=== PATIENT | female | born 1945 ===

== ENCOUNTER 2020-08-01 10:30 | Inpatient (IN) | payer OTHER ==
[~2020-08-01] VITALS: Ht 170.2 cm; Wt 81.2 kg
[2020-08-01] MEDS ORDERED: LEVOTHYROXINE25 MCG PO (13:10)
[2020-08-01] MEDS ORDERED: CRESTOR5 MG PO (13:10)
[2020-08-01] MEDS ORDERED: ESCITALOPRAM OX10 MG PO (13:11)
[2020-08-01] MEDS ORDERED: PREVACID15 MG PO (13:11)
[2020-08-06] MEDS ORDERED: VITAMIN D3125 MC1 (11:28)
[2020-08-06] MEDS ORDERED: DICLOFENAC SOD100 GM (11:28)
[2020-08-06] MEDS ORDERED: NEURONTIN800 MG PO (13:09)
[2020-08-06] MEDS ORDERED: MEDROLPACK PO (13:09)
[2020-08-06] MEDS ORDERED: COLACE100 MG PO (13:09)
[2020-08-06] MEDS ORDERED: AMOX-CLAV 875-1 EACH PO (13:10)
[2020-08-06] MEDS ORDERED: PERCOCET 5-3251 EACH PO (13:11)
[2020-08-06] MEDS ORDERED: DIAZEPAM5 MG PO (13:11)
== END 2020-08-08 14:49 | DRG 455 ==
LOC: ADM 10:30 → O/R 08-06 06:53 → CIR.AMB 08-06 10:30 → SURH 08-06 10:30 → EDSTATUS 08-06 10:30 → SURH 08-06 17:08
PROVIDERS: ADMIT Orthopaedic Surgery Orthopaedic Surgery of the Spine; ATTEND Orthopaedic Surgery Orthopaedic Surgery of the Spine
PROC: 0SG10J1 Fusion of 2 or more Lumbar Vertebral Joints with Synthetic Substitute, Posterior Approach, Posterior Column, Open Approach (ICD-10-PCS; 2020-08-06)
PROC: 07DR3ZZ Extraction of Iliac Bone Marrow, Percutaneous Approach (ICD-10-PCS; 2020-08-06)
PROC: XRGC0F3 Fusion of 2 or more Lumbar Vertebral Joints using Radiolucent Porous Interbody Fusion Device, Open Approach, New Technology Group 3 (ICD-10-PCS; principal; 2020-08-06 22:00)
DX: M41.86 Other forms of scoliosis, lumbar region (principal); M48.062 Spinal stenosis, lumbar region with neurogenic claudication

== ENCOUNTER 2024-07-28 13:32 | Inpatient (IN) | payer OTHER ==
[~2024-07-28] VITALS: Ht 213.4 cm; Wt 68.5 kg
[~2024-07-28 13:32] MED LIST: AMOX-CLAV 875-1 EACH PO; COLACE100 MG PO; CRESTOR5 MG PO; DIAZEPAM5 MG PO; DICLOFENAC SOD100 GM; ESCITALOPRAM OX10 MG PO; LEVOTHYROXINE25 MCG PO; MEDROLPACK PO; NEURONTIN800 MG PO; PERCOCET 5-3251 EACH PO; PREVACID15 MG PO; VITAMIN D3125 MC1
[2024-07-28 14:09] LABS: COVID-19 AG NEGATIVE (NEGATIVE)
[2024-08-11] MEDS ORDERED: METHYLPREDNISOLONE ACETATE 80 MG/ML VIAL ONE (07:17)
[2024-08-11] MEDS ORDERED: VANCOMYCIN HCL 1,000 MG VIAL ONE ×2 (07:17→14:10)
[2024-08-11] MEDS ORDERED: METHYLPREDNISOLONE SOD SUCC 125 MG VIAL ONE (07:17)
[2024-08-11] MEDS ORDERED: ISOPROPYL ALCOHOL 30 ML OUNCE TOP ONE ×2 (07:18→08:30)
[2024-08-11] MEDS ORDERED: CEFAZOLIN SODIUM 1,000 MG VIAL ONE (07:18)
[2024-08-11] MEDS ORDERED: HEMOSTATIC MATRIX WITH THROMBIN KIT TOP ONE ×2 (07:18→08:45)
[2024-08-11] MEDS ORDERED: PERCOCET 5-3251 EACH PO (07:34)
[2024-08-11] MEDS ORDERED: MEDROLPACK PO (07:35)
[2024-08-11] MEDS ORDERED: ZOFRAN8 MG PO (07:35)
[2024-08-11] MEDS ORDERED: COLACE100 MG PO (07:35)
[2024-08-11] MEDS ORDERED: PROMETHAZINE HCL 50 MG/ML AMPUL IM PRN (07:45)
[2024-08-11] MEDS ORDERED: ENALAPRILAT DIHYDRATE 1.25 MG/ML VIAL IV PRN (07:45)
[2024-08-11] MEDS ORDERED: 0.9 % SODIUM CHLORIDE 1,000 ML IV SCH (07:45)
[2024-08-11] MEDS ORDERED: VANCOMYCIN HCL 1,000 MG VIAL SPEPROC ONE (08:30)
[2024-08-11] MEDS ORDERED: METHYLPREDNISOLONE SOD SUCC 125 MG VIAL IV ONE (08:30)
[2024-08-11] MEDS ORDERED: VANCOMYCIN HCL 1,000 MG VIAL IV ONE (08:30)
[2024-08-11] MEDS ORDERED: VANCOMYCIN HCL 1,000 MG VIAL IR ONE (08:30)
[2024-08-11] MEDS ORDERED: CEFAZOLIN SODIUM 1,000 MG VIAL IV ONE (08:30)
[2024-08-11] MEDS ORDERED: METHYLPREDNISOLONE ACETATE 80 MG/ML VIAL IM ONE (08:30)
[2024-08-11] MEDS ORDERED: TAMSULOSIN HCL 0.4 MG CAP PO SCH (09:00)
[2024-08-11] MEDS ORDERED: METHYLPREDNISOLONE SOD SUCC 125 MG VIAL IV SCH (09:00)
[2024-08-11] MEDS ORDERED: FAMOtidine 20 MG TABLET PO SCH (09:00)
[2024-08-11] MEDS ORDERED: MORPHINE SULFATE 4 MG/ML CARTRIDGE IV SCH (09:00)
[2024-08-11] MEDS ORDERED: DOCUSATE SODIUM 100MG CAP PO SCH (09:00)
[2024-08-11] MEDS ORDERED: VANCOMYCIN HCL 1,000 MG VIAL IV SCH (09:00)
[2024-08-11] MEDS ORDERED: CEFAZOLIN SODIUM 1,000 MG in 0.9 % SODIUM CHLORIDE 50 ML IV SCH (09:00)
[2024-08-11] MEDS ORDERED: MORPHINE SULFATE 4 MG/ML VIAL IV ONE ×2 (10:50→11:20)
[2024-08-11 18:21] VITALS: BP 149/86; O2SAT 95
[2024-08-11] MEDS ORDERED: ACETAMINOPHEN 500 MG GEL..CAP PO SCH (20:00)
[2024-08-12] MEDS ORDERED: SODIUM CHLORIDE 0.45 % 1,000 ML IV SCH
[2024-08-12 00:34] VITALS: BP 138/82; O2SAT 95
[2024-08-12] MEDS ORDERED: LEVOTHYROXINE SODIUM 25 MCG TABLET PO SCH (06:00)
[2024-08-12] MEDS ORDERED: OxyCODONE HCL 5 MG TABLET (ROXICODONE) PO PRN (06:01)
[2024-08-12] MEDS ORDERED: VANCOMYCIN HCL 1,000 MG VIAL ONE (06:37)
== END 2024-08-12 13:17 | disposition home or self-care (01) | DRG 473 ==
LOC: O/R 08-11 05:16 → SURH 08-11 05:16
PROVIDERS: ADMIT Orthopaedic Surgery Orthopaedic Surgery of the Spine; ATTEND Orthopaedic Surgery Orthopaedic Surgery of the Spine
PROC: 0RT30ZZ Resection of Cervical Vertebral Disc, Open Approach (ICD-10-PCS; 2024-08-11)
PROC: 07DS0ZZ Extraction of Vertebral Bone Marrow, Open Approach (ICD-10-PCS; 2024-08-11)
PROC: 4A1104G Monitoring of Peripheral Nervous Electrical Activity, Intraoperative, Open Approach (ICD-10-PCS; 2024-08-11)
PROC: 0RG20A0 Fusion of 2 or more Cervical Vertebral Joints with Interbody Fusion Device, Anterior Approach, Anterior Column, Open Approach (ICD-10-PCS; principal; 2024-08-11 07:00)
DX: M50.021 Cervical disc disorder at C4-C5 level with myelopathy (principal); M50.222 Other cervical disc displacement at C5-C6 level; M50.223 Other cervical disc displacement at C6-C7 level; Z98.1 Arthrodesis status; E78.00 Pure hypercholesterolemia, unspecified; E03.9 Hypothyroidism, unspecified